=== PATIENT | male | born 1985 ===

== ENCOUNTER 2021-09-28 15:05 | Emergency (ER) | payer SELFPAY ==
[2021-09-28 15:31] VITALS: BP 153/100
[2021-09-28 17:04] LABS: Bilirubin,Urine NEG (Negative); Blood,Urine NEG (Negative); Color,Urine Amber (Yellow); Mucus,Urine 1+ /HPF
== END 2021-09-28 19:59 | disposition left against medical advice (07) ==
LOC: ED 15:05
DX: R31.9 Hematuria, unspecified (principal); Z53.21 Procedure and treatment not carried out due to patient leaving prior to being seen by health care provider
CPT/HCPCS: 81001; 87086